=== PATIENT | male | born 1985 ===

== ENCOUNTER 2017-03-04 07:00 | Inpatient (IN) | payer OTHER ==
[~2017-03-04] VITALS: Ht 190.5 cm; Wt 86.2 kg
[2017-04-04] VITALS (14 sets, daily range): BP systolic 102–144; BP diastolic 49–84
[2017-04-04] MEDS ORDERED: Bacitracin 50000 Units Vial ONE ×2 (06:43→09:42)
[2017-04-04] MEDS ORDERED: Vancomycin 1gm inj IVPB ONE ×2 (06:43→11:16)
[2017-04-04] MEDS ORDERED: Bupivacaine w/Epi 0.25% 30ml Vial INJ ONE (06:43)
[2017-04-04] MEDS ORDERED: Bupivacaine w/Epi 0.5% 30ml Vial INJ ONE (06:43)
[2017-04-04] MEDS ORDERED: Thrombin 5000 units TOPIC ONE ×2 (06:43→09:42)
[2017-04-04] MEDS ORDERED: NORCO 10/3251 EA ORAL (06:58)
[2017-04-04] MEDS ORDERED: NS Irrig 1000ml ONE (07:00)
[2017-04-04] MEDS ORDERED: Lidocaine 1% MPF 10mg/ml 5ml ONE (07:00)
[2017-04-04] MEDS ORDERED: Sodium Chloride 10ml vial INJ ONE (07:00)
[2017-04-04] MEDS ORDERED: Zemuron 50mg/5ml Inj IV ONE (07:00)
[2017-04-04] MEDS ORDERED: Sterile Water Irrig 1000ml IRRIG ONE (07:00)
[2017-04-04] MEDS ORDERED: fentaNYL 100 mcg/2 mL IV ONE (07:00)
[2017-04-04] MEDS ORDERED: Midazolam 2mg/2ml Inj ONE (07:00)
[2017-04-04] MEDS ORDERED: Propofol 1,000mg/ 100ml btl IV ONE (07:00)
[2017-04-04] MEDS ORDERED: LR 1000ml ONE (07:00)
--- NOTE | 2017-04-04 07:29 | Pre-Procedure Note/Attestation ---
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 I attest that, if there was a reasonable possibility of needing a blood transfusion, the patient (or the patient's legal event sales representative) was given the [place] [facility] [employer] [facility] standardized written summary, pursuant to the [place] Blood Safety Act ([place] Health and Safety Code # 1645, as amended). I attest that I re-evaluated the patient just prior to the surgery and that there has been no change in the patient's H&P, except as documented below: DAMARI SHARP Apr 04, 2017 07:29
[2017-04-04] MEDS ORDERED: Norco 7.5mg/325mg tab ORAL PRN (07:30)
[2017-04-04] MEDS ORDERED: Chloraseptic Spray 20mL Bottle ORAL PRN (07:30)
[2017-04-04] MEDS ORDERED: Norco 5mg/325mg tab ORAL PRN (07:30)
[2017-04-04] MEDS ORDERED: Milk of Magnesia 30ml Ud ORAL PRN (07:30)
[2017-04-04] MEDS ORDERED: Metoclopramide 10mg/2ml Inj IVP PRN (07:30)
[2017-04-04] MEDS ORDERED: Naloxone 0.4mg/ml Inj IVP PRN (07:30)
[2017-04-04] MEDS ORDERED: HYDROmorphone 1mg/ml Carpuject SUBQ PRN (07:30)
--- NOTE | 2017-04-04 07:30 | Brief Operative Note ---
Immediate Post Operative Note Operative Note Chief Complaint: Back and leg pain, disc herniations L45 and 5S1 Pre-op Diagnosis: Intractable back pain , recurrent disc herniation L45 and L5S1 Procedure: Stage 1 Anterior Lumbar interbody fusion of Lumbar 45 and 5S1 with allograft bone Stage 2 Posterior miller laminectomy and pedicle screw fixation of L45 and 5S1 Post-op Diagnosis: same as pre-op Surgeon: ARON Bill Distributor: ABBIE Anesthesia: general Specimen: none Condition: stable Implant(s) used?: Yes - nJUVASIVE BRIGADE PEEK SYNTHES PEDICLE SCREWS DAMARI SHARP Apr 04, 2017 07:30
[2017-04-04] MEDS ORDERED: Heparin 5000 units/ml inj ONE (07:57)
[2017-04-04] MEDS ORDERED: LR 1000ml 1,000 ML IVLG SCH (08:28)
[2017-04-04] MEDS ORDERED: LORazepam Inj 2mg/ml 1ml IV PRN (08:30)
[2017-04-04] MEDS ORDERED: LR 1000ml 1,000 ML IV SCH (08:30)
[2017-04-04] MEDS ORDERED: DiphenhydrAMINE 50mg/ml Inj IVP PRN (08:30)
[2017-04-04] MEDS ORDERED: ceFAZolin 2gm/50 ML IV ONE (08:30)
--- NOTE | 2017-04-04 08:40 | Anethesia Preoperative Eval ---
Anesthesia Pre-op PMH/ROS General Date of Evaluation: Apr 04, 2017 Time of Evaluation: 07:15 Anesthesiologist: Carlos A ASA Score: ASA 1 Mallampati Score Class I : Soft palate, uvula, fauces, pillars visible Class II: Soft palate, uvula, fauces visible Class III: Soft palate, base of uvula visible Class IV: Only hard plate visible Mallampati Classification: Class I Surgeon: Jenny Diagnosis: Lumbar radiculopathy, HNP, stenosis Surgical Procedure: ALIF and PLIF L4-5, L5-S1 Family History: no anesthesia problems Allergies: Coded Allergies: CIPROFLOXACIN (Verified Allergy, Unknown, 04/01/17) Medications: see eMAR Past Medical History Cardiovascular: Denies: HTN, CAD, [place], valve dz, arrhythmia, other Pulmonary: Denies: asthma, COPD, [place], other Gastrointestinal/Genitourinary: Denies: GERD, CRI, ESRD, other Neurologic/Psychiatric: Denies: dementia, CVA, depression/anxiety, TIA, other Endocrine: Denies: DM, hypothyroidism, steroids, other HEENT: Denies: cataract (L), cataract (R), glaucoma, SLEETMUTE (L), SLEETMUTE (R), other Hematology/Immune: Denies: anemia, DVT, bleeding disorder, other Musculoskeletal/Integumentary: Denies: OA, RA, DJD, DDD, edema, other PMH Narrative: Denies significant PMH PSxH Narrative: Microdiscectomy Anesthesia Pre-op Phys. Exam Physician Exam Last Vital Signs Date Time Temp Pulse Resp B/P (MAP) Pulse Ox O2 Delivery O2 Flow Rate FiO2 04/04/17 07:04 98.2 77 18 138/84 99 Room Air Constitutional: NAD Neurologic: CN 2-12 intact Cardiovascular: RRR, no M/R/G Respiratory: CTA Gastrointestinal: S/NT/ND Airway Exam Mallampati Score: Class I MO: full ROM: full Teeth: intact Anesthesia Pre-op A/P Labs WNL Studies Pre-op Studies: EKG - NSR Risk Assessment & Plan Assessment: Healthy male for ALIF and PLIF L4-5, L5-S1 Plan: GETA, SedLine, second IV to right hand Status Change Before Surgery: No Pre-Antibiotics Drug: Ancef Given Within 1 Hr of Incision: Yes Time Given: 07:45 APDMA MEDINA M.D. Apr 04, 2017 08:40
--- NOTE | 2017-04-04 08:41 | Immediate Post-Op Evaluation ---
Immediate Post-Op Evalulation Immediate Post-Op Evalulation Procedure: LIF and PLIF L4-5, L5-S1 Date of Evaluation: Apr 04, 2017 Time of Evaluation: 13:15 IV Fluids: 3100 Estimated Blood Loss: 200 Urinary Output: 200 Blood Pressure Systolic: 110 Blood Pressure Diastolic: 63 Pulse Rate: 68 Respiratory Rate: 18 O2 Sat by Pulse Oximetry: 100 Temperature (Fahrenheit): 97.3 Pain Score (1-10): 0 Nausea: No Vomiting: No Complications No complication Patient Status: reacts, patent, extubated, none Hydration Status: adequate Drug: Ancef Given Within 1 Hr of Incision: Yes Time Given: 07:45 PADMA MEDINA M.D. Apr 04, 2017 08:41
[2017-04-04] MEDS ORDERED: Propofol 200mg/20ml IV ONE (12:04)
[2017-04-04] MEDS: Hydromorphone 0.5mg/0.5ml inj IVP PRN ×2 (13:27→14:02)
[2017-04-04] MEDS: Meperidine 25mg/0.5ml Inj (FOR RIGORS ONLY) IV PRN ×2 (13:33→14:38)
--- NOTE | 2017-04-04 15:26 | Diagnostic Imaging Report ---
Indication: PAIN low back and left lower extremity Technique: Intraoperative imaging Comparison: None Findings: Digital intraoperative initially demonstrate a surgical tool at the anterior aspect of what is presumably L5-S1 disc. Subsequent images demonstrate placement of anterior fusion hardware and disc spacers, subsequent posterior fusion hardware between L4 and S1. Impression: Intraoperative images, as described
[2017-04-04] MEDS: NS w/KCl 20mEq 1,000 ML IV SCH (15:53)
[2017-04-04] MEDS: Dexamethasone 4mg/ml vial IVP SCH (16:02)
[2017-04-04] MEDS: ceFAZolin sod 1 GM in D5W 55 ML IV SCH ×2 (16:02→23:11)
[2017-04-04] MEDS: Docusate 100mg cap ORAL SCH (18:00)
--- NOTE | 2017-04-04 20:00 | Consultation ---
DATE OF CONSULTATION: 04/04/2017 VASCULAR SURGERY CONSULTATION HISTORY OF PRESENT ILLNESS: The patient is a 31-year-old male, who was admitted to undergo anterior lumbar interbody fusions of L4-L5 and L5-S1 as determined by his spine surgeon, Dr. David Alvarado. Prior to today, the patient had received at his home my separate informed consent form which introduced me and explained my role in the approach for the anterior lumbar spine surgery. It also outlined the possible risks and complications, including but not limited to hemorrhage, need for blood transfusions, retrograde ejaculation, wound infection, bowel or ureter injury, arterial or venous injury or thrombosis, and the remote chance of etc. The patient read the form signed it and brought that back to the hospital with him today. In addition, I telephoned the patient where the procedure was discussed. Today, he was seen in the preoperative holding area with his apparent girlfriend in attendance and the contents of the form were again reviewed and any further questions were answered. He was shown the site of the incision. He had palpable bilateral dorsalis pedis pulses. He was 6 feet 3 inches tall, weighing approximately 190 pounds giving him a BMI of 24,. His hematocrit was 46 with a platelet count of 255,000. His INR was 1.02 with a PTT of 31 seconds. That consent was signed once again with a nurse witness and signature as well and then placed into the chart. He fully understood and wished to proceed. There were no contraindications and we would proceed with the proposed operation. Nithin Randolph M.D. DR: MARIZOL JOB#: [id number] CC:
--- NOTE | 2017-04-04 23:41 | Consultation ---
History of Present Illness General Date patient seen: Apr 04, 2017 Time patient seen: 17:00 Chief Complaint: intractable back pain Referring physician: Dr. Alvarado Reason for Consultation: med della Present Illness HPI 31y/o male with lumbar disc herniation who presents s/p Stage 1 Anterior Lumbar interbody fusion of Lumbar 45 and 5S1 with allograft bone and Stage 2 Posterior miller laminectomy and pedicle screw fixation of L45 and 5S1 on 04/04/17, POD#0. Postop pain appears controlled. Denies n/v, d/c, chest pain, SOB, f/c. Allergies: Coded Allergies: CIPROFLOXACIN (Verified Allergy, Unknown, 04/01/17) Medication History Scheduled PRN Hydrocodone/Acetaminophen (Hydrocodon-Acetaminophn 10-325), 1 TAB ORAL Q4H PRN for For Pain, (Reported) Patient History Healthcare decision maker holley(lupis) Resuscitation status Full Code Advanced Directive on File No Past Medical/Surgical History Past Medical/Surgical History: (1) HNP (herniated nucleus pulposus), lumbar Family History Family History: (1) No significant family history Social History Social History: (1) No significant social history Review of Systems ROS Narrative CONSTITUTIONAL: No weight loss, fever, chills, weakness or fatigue. HEENT: Eyes: No visual loss, blurred vision, double vision or yellow sclerae. Ears, Nose, Throat: No hearing loss, sneezing, congestion, runny nose or sore throat. SKIN: No rash or itching. CARDIOVASCULAR: No chest pain, chest pressure or chest discomfort. No palpitations or edema. RESPIRATORY: No shortness of breath, cough or sputum. GASTROINTESTINAL: No anorexia, nausea, vomiting or diarrhea. No abdominal pain or blood. NEUROLOGICAL: No headache, dizziness, syncope, paralysis, ataxia, numbness or tingling in the extremities. No change in bowel or bladder control. MUSCULOSKELETAL: No muscle, back pain, joint pain or stiffness. HEMATOLOGIC: No anemia, bleeding or bruising. LYMPHATICS: No enlarged nodes. No history of splenectomy. PSYCHIATRIC: No history of depression or anxiety. ENDOCRINOLOGIC: No reports of sweating, cold or heat intolerance. No polyuria or polydipsia. ALLERGIES: No history of asthma, hives, eczema or rhinitis. Physical Exam Physical Exam Narrative General: alert, cooperative, no distress, appears stated age Head: normocephalic, without obvious abnormality, atraumatic Eyes: conjunctivae/corneas clear. PERRL, EOM's intact Throat: lips, mucosa, and tongue normal. MMM Neck: supple, symmetrical, trachea midline, and no JVD Lungs: clear to auscultation bilaterally Heart: regular rate and rhythm, S1, S2 normal, no murmur, click, rub or gallop Abdomen: soft, non-tender, non-distended, bowel sounds normal; no masses or organomegaly Extremities: extremities normal, atraumatic, no cyanosis or edema Pulses: 2+ and symmetric Skin: skin color, texture, turgor normal; no rashes or lesions Neurologic: grossly normal, no focal deficits Dressing c/d/i Last 24 Hour Vital Signs Date Time Temp Pulse Resp B/P (MAP) Pulse Ox O2 Delivery O2 Flow Rate FiO2 04/04/17 20:00 97.7 76 16 126/77 100 Nasal Cannula 2.0 04/04/17 15:25 98.2 80 15 134/74 100 Nasal Cannula 3.0 04/04/17 15:08 98.0 04/04/17 14:50 98.0 79 15 137/82 100 Nasal Cannula 3.0 04/04/17 14:38 79 15 144/78 100 Nasal Cannula 3.0 04/04/17 14:32 98.0 04/04/17 14:30 75 15 134/84 100 Nasal Cannula 3.0 04/04/17 14:15 72 13 129/80 100 Nasal Cannula 3.0 04/04/17 14:00 71 13 131/76 100 Nasal Cannula 3.0 04/04/17 13:50 69 12 135/76 100 Nasal Cannula 3.0 04/04/17 13:35 72 13 132/74 100 Nasal Cannula 3.0 04/04/17 13:20 68 18 102/60 100 Nasal Cannula 3.0 04/04/17 13:10 70 20 113/49 100 Simple Mask 6.0 04/04/17 13:05 76 18 117/67 100 Simple Mask 6.0 04/04/17 13:04 68 18 100 04/04/17 13:00 97.3 69 14 113/65 100 Simple Mask 6.0 04/04/17 07:04 98.2 77 18 138/84 99 Room Air Intake and Output 04/04/17 04/05/17 19:00 07:00 Intake Total 4355 ml 200 ml Output Total 500 ml 1450 ml Balance 3855 ml -1250 ml Intake Oral 200 ml IV Total 4355 ml Output Urine Total 300 ml 1450 ml Estimated Blood Loss 200 ml Height (Feet): 6 Height (Inches): 3.00 Weight (Pounds): 190 Medications Current Medications Medications (Trade) Dose Ordered Sig/Ajit Route PRN Reason Start Time Stop Time Status Last Admin Dose Admin Acetaminophen (Tylenol) 650 mg Q4H PRN ORAL headache or temp>101 04/04/17 07:30 05/04/17 07:29 Acetaminophen/ Hydrocodone Bitart ([place] 5/325) 1 tab Q3H PRN ORAL pain score 1-3 04/04/17 07:30 04/11/17 07:29 Acetaminophen/ Hydrocodone Bitart ([place] 7.5/325) 1 ea Q3H PRN ORAL pain score 4-6 04/04/17 07:30 04/11/17 07:29 Acetaminophen/ Hydrocodone Bitart ([place] 7.5/325) 2 ea Q3H PRN ORAL pain scale 7-10 04/04/17 07:30 04/11/17 07:29 Carisoprodol (Soma) 350 mg TIDPRN PRN ORAL MUSCLE SPASM 04/04/17 07:30 05/04/17 07:29 Cefazolin Sodium 1 gm/Dextrose 55 ml @ 110 mls/hr EVERY 8 HOURS IV 04/04/17 15:30 04/05/17 06:29 04/04/17 23:11 Cetylpyridinium Chloride (Cepacol) 1 lozenge Q2H PRN LINDEN SORE THROAT 04/04/17 07:30 05/04/17 07:29 Dexamethasone Sodium Phosphate (Decadron 4mg/ml vial) 4 mg Q6HR IVP 04/04/17 16:00 04/05/17 12:01 04/04/17 16:02 Docusate Sodium (Colace) 100 mg TWICE A DAY ORAL 04/04/17 18:00 05/04/17 17:59 Hydromorphone HCl (Dilaudid) 1 mg Q2H PRN IVP Breakthrough Pain 04/04/17 07:30 04/11/17 07:29 Hydromorphone HCl (Dilaudid) 1 mg Q4H PRN SUBQ Mild Pain (Pain Scale 1-3) 04/04/17 07:30 04/11/17 07:29 Hydromorphone HCl (Dilaudid) 2 mg Q3H PRN SUBQ Severe Pain (Pain Scale 7-10) 04/04/17 15:00 04/11/17 14:59 04/04/17 23:12 Hydromorphone HCl (Dilaudid) 2 mg Q4H PRN SUBQ Moderate Pain (Pain Scale 4-6) 04/04/17 07:30 04/11/17 07:29 Magnesium Hydroxide (Mom) 30 ml QIDPRN PRN ORAL Constipation 04/04/17 07:30 05/04/17 07:29 Metoclopramide HCl (Reglan) 10 mg Q6H PRN IVP UNRELIEVED N/V 04/04/17 07:30 05/04/17 07:29 Naloxone HCl (Narcan) 0.1 mg PRN PRN IVP RR<12/min, pt unarousable 04/04/17 07:30 05/04/17 07:29 Ondansetron HCl (Zofran) 4 mg Q6H PRN IVP N/V 04/04/17 07:30 05/04/17 07:29 04/04/17 18:59 Phenol/Menthol (Chloraseptic) 1 spray Q3H PRN ORAL For pt comfort for throat 04/04/17 07:30 05/04/17 07:29 Prochlorperazine (Compazine) 10 mg Q6H PRN IVP IRRETRACTABLE N/V 04/04/17 07:30 05/04/17 07:29 Sodium Chloride 1,000 ml @ 100 mls/hr Q10H IV 04/04/17 15:30 05/04/17 15:29 04/04/17 15:53 Temazepam (Restoril) 15 mg HSPRN PRN ORAL Insomnia 04/04/17 07:30 04/11/17 07:29 Assessment/Plan Problem List: (1) HNP (herniated nucleus pulposus), lumbar ICD Codes: M51.26 - Other intervertebral disc displacement, lumbar region SNOMED: 176326764 Status: stable Assessment/Plan s/p Stage 1 Anterior Lumbar interbody fusion of Lumbar 45 and 5S1 with allograft bone and Stage 2 Posterior miller laminectomy and pedicle screw fixation of L45 and 5S1 on 04/04/17 Post operative recommendations include: - encourage mobilization/ambulation - encourage incentive spirometry to optimize pulmonary hygiene - DVT/GI prophylaxis as appropriate - ctm CBC and hemodynamics - ctm electrolytes, adjust/replete prn - PT/OT - pain control, supportive care, bowel regimen - DC planning FULL CODE D/w pt, RN regarding mgmt and dispo Rebecac Baldwin M.D. Apr 04, 2017 23:41
[2017-04-05] VITALS: BP 124/75
--- NOTE | 2017-04-05 | Operative Note - Dictated ---
DATE OF OPERATION: 04/04/2017 OPERATIONS: 1. Muscle sparing anterior abdominal retroperitoneal approach for anterior lumbar interbody fusions (two levels). 2. Mobilization of the left iliac artery and aorta. 3. Mobilization of the left iliac vein and ligation of ilial lumbar vein. 4. Plastic closure repair of abdominal wound. CO-SURGEONS: 1. Nithin Randolph M.D. 2. David Alvarado M.D. ANESTHESIA: General. PREOPERATIVE DIAGNOSIS: Lumbar pain with radiculopathy, L4-L5 and L5-S1. POSTOPERATIVE DIAGNOSIS: Lumbar pain with radiculopathy, L4-L5 and L5-S1. DESCRIPTION OF PROCEDURE: Prior to surgery, the patient had received at his home my separate informed consent form, which introduced me and explained my role in the approach for the anterior lumbar spine surgery. It also outlined the possible risks and complications including, but not limited to hemorrhage, need for blood transfusions, retrograde ejaculation, wound infection, bowel or ureter injury, arterial or venous injury or thrombosis, and the remote chance of , etc. The patient read the form, signed it, and brought it back to the hospital with him today. In addition, I telephoned the patient, where the procedure was discussed. Today, he was seen in the preoperative holding area where the contents of the form were again reviewed and any further questions were answered. He was shown the site of the incision. He had palpable bilateral dorsalis pedis pulses. That consent was signed once again with a nurse witness and signature as well and then placed into the chart. He fully understood and wished to proceed. A preoperative vascular surgery consultation report was dictated. The patient was taken into the operating room and placed in supine position. Using an endotracheal tube, he was placed under general anesthesia without difficulty. His abdomen was prepped and draped in the usual sterile manner. An appropriate time-out was obtained. An oblique incision was made in the left lower quadrant from the low midline and carried down through the subcutaneous tissues down to the rectus fascia. Hemostasis was achieved using electrocautery. The rectus fascia was incised with extension into the fibers of the external oblique aponeurosis. Elevation of the rectus fascia away from the anterior surface of the muscle was then carried out for a distance of approximately 4 cm cephalad. This would allow for retraction of the rectus muscle laterally in order to obtain direct anterior-posterior approach to the anterior surface of the spine. The inferior epigastric vessels were identified and preserved. The posterior fascia was then incised and carefully from the peritoneum. Laterally, the retroperitoneal space was entered down to the left psoas muscle. The left ureter was identified and protected as it was mobilized with the peritoneum more medially until the left iliac artery was identified. Deep self-retaining retractors such as the [place] and [place] were utilized to hold the abdominal wall and peritoneal contents in place while further dissection was carried out. The left iliac artery was now mobilized for its entire length throughout the junction with the aorta. Deeper dissection revealed the common iliac vein, which was mobilized down to its iliolumbar branch. This branch was ligated using 0 silk with hemoclips placed and transected. Any other venous tributaries in the area were controlled with hemoclips and transected. This allowed for mobilization of the iliac vessels both anteriorly and to the right to allow proper visualization of the anterior surface of the spine. Segmental vessels lying along the anterior surface of the spine were taken between hemoclips and transected. Attention was directed below the bifurcation of the iliac vessels where several medial branches of the iliac vein were taken between hemoclips and transected. The middle sacral artery was taken between hemoclips and transected. Careful blunt dissection was carried out to preserve the sympathetic chains laterally as well as the parasympathetic plexus, which lies anteriorly along the surface of the fifth lumbar vertebra. Further careful blunt dissection was utilized exposing anterior surface of the multiple vertebral bodies intervening disc spaces. Several malleable retractor blades were now placed in all quadrants with the rectus muscle now retracted laterally, which allowed exposure and direct anterior-posterior approach to the anterior surface of the spine. A needle was inserted into the appropriate disc space and an x-ray was taken to verify the exposure. The spine surgeon then proceeded to perform diskectomy at the multiple levels and fusions, which will be dictated in a separate report by the spine surgeon, Dr. Alvarado. Antibiotic irrigation had been carried out. The malleable retractors were removed. Vancomycin powder was left in the retroperitoneum. The iliac vessels were then checked to see that there was no thrombosis in the vein with good flow in the artery without any spasm or thrombosis. A further check for hemostasis was made and the integrity of the ureter was verified. The peritoneum was allowed to return to its anatomical location and then the posterior sheath was approximated using continuous running suture of 2-0 Vicryl. The anterior rectus fascia was approximated using #1 Vicryl. The subcutaneous tissues were irrigated using antibiotic solution and hemostasis noted to be achieved. Plastic closure repair of the abdominal wound was continued using 2-0 Vicryl, followed by skin approximation using continuous subcuticular suture of 4-0 Monocryl. Steri-Strips were applied. Dry sterile gauze OpSite dressings were applied. The sponge, pad, needle, and instrument counts reported as correct. Estimated blood loss was 75 mL. There were no complications during this part of the procedure. At completion of this part of the procedure, the patient had maintenance of strong palpable bilateral dorsalis pedis pulses and the pulse oximeter registered 100% on the left foot. The patient would remain in the operating room, undergo posterior instrumentation by the spine surgeon. Nithin Randolph M.D. DR: Alberto JOB#: [id number] CC:
[2017-04-05] MEDS: NS w/KCl 20mEq 1,000 ML IV SCH ×2 (00:04→11:30)
[2017-04-05] MEDS: Dexamethasone 4mg/ml vial IVP SCH ×3 (00:04→13:02)
[2017-04-05 04:00] VITALS: BP 136/78
[2017-04-05] MEDS: ceFAZolin sod 1 GM in D5W 55 ML IV SCH (06:08)
[2017-04-05 08:00] VITALS: BP 125/76
[2017-04-05] MEDS: Norco 7.5mg/325mg tab ORAL PRN ×4 (09:43→21:50)
[2017-04-05] MEDS: Docusate 100mg cap ORAL SCH ×2 (10:10→17:37)
--- NOTE | 2017-04-05 11:51 | 48 Hour Post Anesthesia Eval ---
Post Anesthesia Evaluation Procedure: LIF and PLIF L4-5, L5-S1 Date of Evaluation: Apr 05, 2017 Time of Evaluation: 09:35 Blood Pressure Systolic: 125 0: 76 Pulse Rate: 78 Respiratory Rate: 18 Temperature (Fahrenheit): 98.4 O2 Sat by Pulse Oximetry: 96 Airway: patent Nausea: No Vomiting: No Pain Intensity: 3 Hydration Status: adequate Cardiopulmonary Status: Stable Mental Status/LOC: patient returned to baseline Follow-up Care/Observations: As per surgery Post-Anesthesia Complications: No anesthetic complication Follow-up care needed: N/A PADMA MEDINA M.D. Apr 05, 2017 11:51
[2017-04-05 12:01] VITALS: BP 117/74
[2017-04-05 16:18] VITALS: BP 138/77
[2017-04-05 20:00] VITALS: BP 118/79
--- NOTE | 2017-04-05 20:24 | General Progress Note ---
Assessment/Plan Problem List: (1) HNP (herniated nucleus pulposus), lumbar ICD Codes: M51.26 - Other intervertebral disc displacement, lumbar region SNOMED: 546273644 Status: stable Assessment/Plan s/p Stage 1 Anterior Lumbar interbody fusion of Lumbar 45 and 5S1 with allograft bone and Stage 2 Posterior miller laminectomy and pedicle screw fixation of L45 and 5S1 on 04/04/17 Post operative recommendations include: - encourage mobilization/ambulation - encourage incentive spirometry to optimize pulmonary hygiene - DVT/GI prophylaxis as appropriate - ctm CBC and hemodynamics - ctm electrolytes, adjust/replete prn - PT/OT - pain control, supportive care, bowel regimen - DC planning FULL CODE D/w pt, RN regarding mgmt and dispo Subjective Date patient seen: Apr 05, 2017 Time patient seen: 15:00 ROS Limited/Unobtainable: No Constitutional: Reports: no symptoms HEENT: Reports: no symptoms Cardiovascular: Reports: no symptoms Respiratory: Reports: no symptoms Gastrointestinal/Abdominal: Reports: abdomen distended Genitourinary: Reports: no symptoms Neurologic/Psychiatric: Reports: no symptoms Endocrine: Reports: no symptoms Hematologic/Lymphatic: Reports: no symptoms Allergies: Coded Allergies: CIPROFLOXACIN (Verified Allergy, Unknown, 04/01/17) Subjective No acute o/n events POD1 Pt doing well. Pain controlled. C/o abd distention, no gas yet. Denies f/c, n/v , d/c, chest pain, SOB Objective Last 24 Hour Vital Signs Date Time Temp Pulse Resp B/P (MAP) Pulse Ox O2 Delivery O2 Flow Rate FiO2 04/05/17 16:18 99.1 70 20 138/77 100 Room Air 04/05/17 12:01 98.5 71 20 117/74 99 Room Air 04/05/17 11:51 78 18 96 04/05/17 08:00 98.4 78 18 125/76 96 Nasal Cannula 2.0 04/05/17 04:00 98.6 77 16 136/78 99 Nasal Cannula 2.0 04/05/17 00:00 98.6 80 16 124/75 100 Room Air Intake and Output 04/05/17 04/06/17 19:00 07:00 Intake Total 580 ml Balance 580 ml Intake Oral 580 ml # Voids 1 Height (Feet): 6 Height (Inches): 3.00 Weight (Pounds): 190 Objective General: alert, cooperative, no distress, appears stated age Head: normocephalic, without obvious abnormality, atraumatic Eyes: conjunctivae/corneas clear. PERRL, EOM's intact Throat: lips, mucosa, and tongue normal. MMM Neck: supple, symmetrical, trachea midline, and no JVD Lungs: clear to auscultation bilaterally Heart: regular rate and rhythm, S1, S2 normal, no murmur, click, rub or gallop Abdomen: soft, non-tender, non-distended, bowel sounds normal; no masses or organomegaly Extremities: extremities normal, atraumatic, no cyanosis or edema Pulses: 2+ and symmetric Skin: skin color, texture, turgor normal; no rashes or lesions Neurologic: grossly normal, no focal deficits Dressing c/d/i Rebecca Baldwin M.D. Apr 05, 2017 20:24
[2017-04-06] MEDS: HYDROmorphone 1mg/ml Carpuject IVP PRN ×2 (03:53→09:49)
[2017-04-06 04:00] VITALS: BP 124/91
[2017-04-06 08:00] VITALS: BP 114/61
[2017-04-06] MEDS: Docusate 100mg cap ORAL SCH ×2 (09:48→17:30)
[2017-04-06 12:00] VITALS: BP 112/72
[2017-04-06] MEDS: Norco 7.5mg/325mg tab ORAL PRN ×2 (13:14→16:56)
[2017-04-06 16:00] VITALS: BP 108/71
[2017-04-06] MEDS ORDERED: PERCOCET 10-321 EACH ORAL (17:12)
--- NOTE | 2017-04-07 04:00 | Operative Note - Dictated ---
DATE OF OPERATION: 04/04/2017 Stage 1 of 2. SURGEON: David Alvarado M.D., Orthopaedic Spine Surgeon INTERNATIONAL PROJECT MANAGER SURGEON: Nithin Randolph M.D. ANESTHESIA: General endotracheal anesthesia. PREOPERATIVE DIAGNOSES: 1. Intractable back pain. 2. Intractable leg pain. 3. Worsening radiculopathy. 4. Weakness. 5. Herniated nucleus pulposus, L4-5 and L5-S1 herniation. 6. Neural foraminal stenosis, L4-5 and L5-S1 herniation. POSTOPERATIVE DIAGNOSES: 1. Intractable back pain. 2. Intractable leg pain. 3. Worsening radiculopathy. 4. Weakness. 5. Herniated nucleus pulposus, L4-5 and L5-S1 herniation. 6. Neural foraminal stenosis, L4-5 and L5-S1 herniation. PROCEDURES PERFORMED: 1. Radical anterior lumbar intervertebral L4-5 and L5-S1 discectomy. 2. Anterior lumbar interbody fusion using a NuVasive Brigade PEEK cage size #14 mm with 10 mL of Osteocel and bone morphogenetic protein with allograft Meigs bone. 3. Anterior lumbar plating and fixation at L4-5 and L5-S1 using Synthes pedicle screws 6 mm x 45 mm x3 25 mm length. 4. Anterior retroperitoneal exposure. 5. Supervision and interpretation of intraoperative fluoroscopy. 6. Supervision and interpretation of somatosensory-evoked potential and free running EMG monitoring. ESTIMATED BLOOD LOSS: 150 mL COMPLICATIONS: None. Indications For The Procedure: The patient is a 31-year-old male who presents for intractable back pain and radiculopathy which is well documented in our clinical chart and records. We had a long discussion with Maida regarding definitive surgical treatment options. We had a long discussion with the patient regarding the risks, alternatives, and benefits of procedure. Our description of the risks included a discussion in person as well as a signed consent which detailed all pertinent risks and the procedure itself. Briefly, our discussion included but was not limited to infection, bleeding, pseudarthrosis, spinal cord injury, neurovascular injury, dural tear, CSF leak, neuropathy, paralysis, permanent weakness/drop foot, paresthesias, blindness, palsy and weakness. The patient understood there may be a need for revision surgery or additional procedures. Approach-related complications including dysphonia, dysphagia, blindness, permanent vocal cord and neural injury, hematoma, swallowing and breathing difficulty; medical complications including liver, kidney, shock, and cardiopulmonary failure; anesthesia complications including , swelling, damage to the musculature, larynx , esophagus, trachea, blood vessels and muscles and lungs during this surgical procedure. Injury to deeper structures may be temporary or permanent. The patient understood these and elected to proceed. A written and verbal consent was given. We discussed the pros and cons of all the alternatives. We discussed the uncertainties associated with the decision. Afterwards I assessed the patients understanding and explored their preferences. All questions were answered and no guarantees were given. Medical clearance was obtained prior to surgery. OPERATIVE FINDINGS: A broad-based disc herniation at L4-5 and L5-S1 was encountered, which encroached on the thecal sac and neural foraminal elements therein. This L4-5 and L5-S1 disk was acute in nature and not calcified. It was mobile and free floating and resected easily. There was also neural foraminal stenosis at L4-5 and L5-S1. DESCRIPTION OF PROCEDURE: Under the benefit of general endotracheal anesthesia and with the assistance of the entire operative team, the patient was moved from the [facility] onto the operative table in the supine position on a radiolucent frame. The head was secured and positioned appropriately. Bilateral arms were secured with Gel Pads and foam and all bony prominences were padded. The bilateral lower extremity SCD and SABA hose were placed for DVT prophylaxis. A surgical timeout was called, which corroborated our planned procedure. Preoperative antibiotics were administered within 30 minutes of the incision for prophylaxis. Using lateral radiography, the operative levels were delineated. An incision was marked based on our interpretation of lateral radiography and afterwards the body was prepped and draped in the usual sterile manner. The family was notified that we were ready to commence surgery and were called in the waiting room hourly for updates. An incision was based on our lateral fluoroscopic image to center the incision at the L4-5 and L5-S1 interspace. The wound was prepped and draped in the usual sterile fashion. Using a scalpel, a standard retroperitoneal exposure was performed by our vascular surgeon, and this is delineated in a separate operative note. After appropriate exposure at the L5-S1 disc space, we next turned our attention towards our radical discectomy. This was performed in standard fashion first beginning with a gentle mobilization of all superficial soft tissue overlying the disc space with Kittners. After this was performed we marked our midline and confirmed our disc space on AP and lateral fluoroscopy. Next, using a 10 blade long-handled scalpel, the disc was resected from the endplates in a box discectomy technique. Next using Beth elevators the disc was mobilized off each endplate. After this, using a large Leksell rongeurs, the entire disc was removed from the intervertebral space. All residual disc and cartilaginous endplates were resected using a combination of small and medium curettage, pituitaries, size 4 and size 6 Kerrison rongeurs. Next, the endplates were distracted in a parallel fashion using the [employer] or medical and a 7.5 Thandle. At this point the PLL was resected using a small curette and a Kerrison 4 rongeur. Next the endplates were resected down to bleeding subchondral bone using a ring and box curette. For any residual bleeding which we encountered at this point, this was maintained and controlled with a combination of FloSeal, Gelfoam and bipolar cautery. Afterwards, Tisseel was used to seal the discectomy site dorsally. Next I then trialed the interspace for height, width and depth. This was confirmed on fluoroscopy and, once satisfied with our fit, we loaded and inserted a NuVasive Brigade PEEK cage size #14 mm with bone morphogenetic protein and with allograft Meigs bone under AP and lateral fluoroscopy. AP and lateral fluoroscopy confirmed excellent placement at the L4-5 and L5-S1 interspace. Afterwards, we turned our attention towards plating from the L5-S1 NuVasive Brigade. This anterior lumbar plating and fixation at L5-S1 using Synthes pedicle screws 6 mm x 45 mm x3 25 mm length. Final radiographs confirmed appropriate placement of all hardware, screws and our PEEK cages along with a sabianist of the lumbar lordosis. Afterwards, Tisseel was used to seal the discectomy site ventrally. FloSeal and Zosyn antibiotics were placed directly on the anterior fusion site. Second level: L4-5. After appropriate exposure at the L4-5 disc space we next turned our attention towards our radical discectomy. This was performed in standard fashion first beginning with a gentle mobilization of all superficial soft tissue overlying the disc space with Kittners. After this was performed, we marked our midline and confirmed our disc space on AP and lateral fluoroscopy. Next using a 10 blade long-handled scalpel, the disc was resected from the endplates in a box discectomy technique. Next, using Beth elevators, the disc was mobilized off each endplate. After this, using a large Leksell rongeurs, the entire disc was removed from the intervertebral space. All residual disc and cartilagenous endplates were resected using a combination of small and medium curettage, pituitaries, size 4 and size 6 Kerrison rongeurs. Next the endplates were distracted in a parallel fashion using the [employer] or medical and a 7.5 Thandle. At this point the PLL was resected using a small curette and a Kerrison 4 rongeur. Next the endplates were resected down to bleeding subchondral bone using a ring and box curette. For any residual bleeding which we encountered at this point, this was maintained and controlled with combination of FloSeal, Gelfoam and bipolar cautery. Afterwards, Tisseel was used to seal the discectomy site dorsally. Next, I then trialed the interspace for height , width and depth. This was confirmed on fluoroscopy and once satisfied with our fit, we loaded and inserted a a NuVasive Brigade PEEK cage size #14 mm with bone morphogenetic protein and with allograft Meigs bone under AP and lateral fluoroscopy. AP and lateral fluoroscopy confirmed excellent placement at the L4-5 interspace. Afterwards, we turned our attention towards plating from the L4-5, NuVasive Brigade. This anterior lumbar plating and fixation at L4-5 using Synthes pedicle screws 6 mm x 45 mm x3 25 mm length. Final radiographs confirmed appropriate placement of all hardware, screws and our PEEK cages along with a sabianist of the lumbar lordosis. Afterwards, Tisseel was used to seal the discectomy site ventrally. FloSeal and Zosyn antibiotics were placed directly on the anterior fusion site. The wounds were copiously irrigated with antibiotic impregnated saline. Afterwards, FloSeal was placed to address residual bleeding. Powdered antibiotics were directly poured into the wound to provide for direct antibiosis. Next, I turned my attention to closure. Fascial closure was performed with 1-0 Vicryl suture. Subcutaneous tissues were reapproximated with 2-0 Vicryl. The superficial subcutaneous skin was closed with a running Monocryl and Dermabond. Dressings consisted of Tegaderm and 4 x 4 gauze. The patient tolerated the procedure well and after discussion with our vascular surgeon and our anesthesiologist, we made the determination to proceed with stage 2 of 2 our posterior based approach. The details of stage 1 of the surgery were related to the patients family/representatives upon the conclusion of the procedure in the family waiting room. Stage 2 of 2. SURGEON: David Alvarado M.D., Orthopaedic Spine Surgeon INTERNATIONAL PROJECT MANAGER SURGEON: Nithin Randolph M.D. ANESTHESIA: General endotracheal anesthesia. PREOPERATIVE DIAGNOSES: 1. Intractable back pain. 2. Intractable leg pain. 3. Worsening radiculopathy. 4. Weakness. 5. Herniated nucleus pulposus, L4-5 and L5-S1 herniation. 6. Neural foraminal stenosis, L4-5 and L5-S1. POSTOPERATIVE DIAGNOSES: 1. Intractable back pain. 2. Intractable leg pain. 3. Worsening radiculopathy. 4. Weakness. 5. Herniated nucleus pulposus, L4-5 and L5-S1 herniation. 6. Neural foraminal stenosis, L4-5 and L5-S1. PROCEDURES PERFORMED: 1. Left-sided Garay laminectomy/Wiley-Hinds osteotomy, and complete facetectomy at L4-5 and L5-S1. 2. L4-5 and L5-S1 posterolateral fusion using allograft bone, local autograft, and residual bone morphogenetic protein. 3. Percutaneous pedicle screw fixation at L4-5 and L5-S1 using Synthes pedicle screws 6 mm x 45 mm length of 6.5 mm diameter. 4. Confirmation of pedicle screws placement using neural monitoring. 5. Use of intraoperative microscope. 6. Supervision and interpretation of intraoperative fluoroscopy. 7. Supervision and interpretation of somatosensory-evoked potential and free running EMG monitoring. ESTIMATED BLOOD LOSS: 150 mL. COMPLICATIONS: None. INDICATIONS FOR THE PROCEDURE: The patient is a 31-year-old male, who presents for Stage 2 in regards to their intractable back pain and radiculopathy. This operative note details the second stage of our surgery. Prior to surgery we had a long discussion with Maida regarding definitive surgical treatment options. We had a long discussion with the patient regarding the risks, alternatives, and benefits of procedure. Our description of the risks included a discussion in person as well as a signed consent, which detailed all pertinent risks and the procedure itself. Briefly, our discussion included but was not limited to infection, bleeding, pseudarthrosis, spinal cord injury, neurovascular injury, dural tear, CSF leak, neuropathy, paralysis, permanent weakness/drop foot, paresthesias, blindness, palsy and weakness. The patient understood there may be a need for revision surgery or additional procedures. Approach related complications including dysphonia, dysphagia, blindness, permanent vocal cord and neural injury, hematoma, swallowing and breathing difficulty; medical complications including liver, kidney, shock, and cardiopulmonary failure; anesthesia complications including , swelling, damage to the musculature, larynx, esophagus, trachea, blood vessels and muscles and lungs during this surgical procedure. Injury to deeper structures may be temporary or permanent. The patient understood these and elected to proceed. A written and verbal consent was given. We discussed the pros and cons of all the alternatives. We discussed the uncertainties associated with the decision. Afterwards I assessed the patients understanding and explored their preferences. All questions were answered and no guarantees were given. This now delineates the second stage of the procedure. Operative Findings: Broad-based disc herniations encountered at L4-5 and L5-S1. The disc itself was desiccated, dehydrated. There was a tear/rent in the posterior longitudinal ligament encountered on the left side at L5 and throughout the paramedian to left side at L5-S1. Through these tears, extruded disc material was seen encroaching on the neural elements, which were carefully resected from the neural elements and thecal sac posteriorly. Description Of Procedure: Under the benefit of general endotracheal anesthesia and with the assistance of the entire operative team, the patient was moved from the radiolucent operative table in the prone position onto a Hood frame. The head was secured and positioned appropriately. Bilateral arms were secured with Gel Pads and foam and all bony prominences were padded. The bilateral lower extremity SCD and SABA hose we replaced for DVT prophylaxis. A surgical timeout was called which corroborated our planned procedure. Preoperative antibiotics were administered within 30 minutes of the incision for prophylaxis. Using lateral radiography, the operative levels were delineated. An incision was marked based on our interpretation of anterior posterior and lateral radiography and afterwards the body was prepped and draped in the usual sterile manner. The family was notified that we were ready to commence surgery and were called in the waiting room hourly for updates. An incision was based on our anterior posterior and lateral fluoroscopic image to center the incision at the L?? (Q) interspace. The wound was prepped and draped in the usual sterile fashion. Using a scalpel, a midline incision was made and the subcutaneous tissue was mobilized so that within the fascia two Leo based incisions were made, one incision on the left side focusing on his pedicle at L4-5 through a percutaneous stab wound approach. All pedicles were cannulated in the exact same fashion for each level. This was performed in the following manner. The second incision was made slightly off midline and geared towards his L4-5 interspace approached. Using Jamshidi needles under direct AP and lateral fluoroscopic visualization I approached the L4-5 pedicles with Jamshidi needles making sure to leave clearance along the medial pedicle boundary/wall, and next we advanced our bilateral pedicle screw entry points under AP and lateral fluoroscopy at both our pedicles bilaterally. Next, percutaneous screws were loaded on the hand side and on the contralateral side, . Screws were inserted in percutaneous fashion and afterwards these screws were stimulated. Next, a dana was lordosed and placed percutaneously through the incision. Next, we turned our attention to our Wiley-Hinds type osteotomy, facetectomy and decompression. This was performed at each level in the exact same fashion. Based on AP and lateral fluoroscopy, we centered this incision over the facet joints at L?? of the contralateral side. This was taken down through the skin and subcutaneous tissues until the overlying pars facet joints of L4-5 and L5-S1 were visualized under microscopic visualization. There was severe pressure on this neural foramina as palpated with the [place] dental and a Guerrero ball probe. The pars was then visualized on the contralateral side and this was carefully resected along with the lamina and superior articular process using a Midas Zeferino AM8 drill bit. This was completely resected using a Wiley-Hinds type osteotomy and medial laminar removal and facetectomy. There was a significant amount of bleeding which we encountered at this point and this was maintained and controlled with a combination of FloSeal, Gelfoam and bipolar cautery. After complete resection of the facet joints, we noticed the lateral thecal sac margin and the neural elements . Next, I turned my attention to the stimulation of pedicle screws. All pedicle screws were stimulated with somatosensory evoked potentials ranging over 20 milliampere with no response. Afterwards percutaneous rods from the Synthes pedicle screw system were inserted and placed percutaneously and locking caps were placed. Final radiographs confirmed appropriate placement of all hardware, screws and our PEEK cages along with a sabianist of the lumbar lordosis. The wounds were copiously irrigated with antibiotic impregnated saline. Afterwards, FloSeal was placed to address residual bleeding. Powdered antibiotics were directly poured into the wound to provide for direct antibiosis. Next I turned my attention to closure. Fascial closure was performed with 1-0 Vicryl suture. Subcutaneous tissues were reapproximated with 2-0 Vicryl. The superficial subcutaneous skin was closed with a running Monocryl and Dermabond. Dressings consisted of Tegaderm and 4 x 4 gauze. The patient tolerated the procedure well and will now be admitted to the spine floor for further observation. The details of the entire surgery were related to the patients family/representatives upon the conclusion of the procedure in the family waiting room. David Alvarado M.D. DR: ÁNGEL JOB#: [id number] CC:
--- NOTE | 2017-04-07 05:30 | Discharge Summary ---
DATE OF ADMISSION: 04/04/2017 DATE OF DISCHARGE: 04/06/2017 Procedure Performed During Admission: Anterior and posterior fusion of L4-5 and L5-S1. REASON FOR ADMISSION: Herniated nucleus pulposus, L4-5 and L5-S1. HOSPITAL COURSE/TREATMENT RENDERED: DISCHARGE PHYSICAL EXAMINATION: 1. Patient was ambulating with and without the assistance of physical therapy 2. Prior to discharge home incision was clean and dry with minimal swelling 3. Follows commands 4. Alert and oriented 5. Funes discontinued, voiding 6. Incentive spirometer at bedside 7. IVF hep locked Motor: Demonstrates expected postoperative bulk and tone. Moves biceps, triceps, and deltoid musculature on command. Moves hip flexors, quadriceps, tibialis anterior, EHL, gastrocsoleus musculature on command as well. TREATMENT RENDERED: 1. Daily nursing care 2. Physical Therapy 3. Occupational Therapy 4. Intravenous medications 5. Oral medications 6. Daily postoperative examinations by Spine surgery team Condition of Patient on Discharge: The condition on discharge is stable for discharge to home Discharge Instructions: Our specific instructions relating to physical activity, medications diet and follow-up care are detailed in our standard operative folder and were given to this patient prior to surgery. We will however summarize these briefly as stated below. Regarding physical activity we would like the patient to limit their flexion, extension and rotation. We also require a limitation on their bending lifting and twisting. All medication has been called in prior to surgery to their pharmacy of choice. They can resume their regular diet once tolerated. We would like them to shower and limit soaking the wound in a tub/Jacuzzi/the ocean for a period of one month or until the incision is completely healed. We will have them follow up in our office in three weeks time for their regularly scheduled appointment. They understand to call our office tomorrow to schedule the time for their three week followup appointment. The patient will notify us should they experience any increase in the severity of pain, redness/swelling/ or drainage from their incision. David Alvarado M.D. DR: Lalit JOB#: [id number] CC:
--- NOTE | 2017-04-07 14:32 | General Progress Note ---
Assessment/Plan Problem List: (1) HNP (herniated nucleus pulposus), lumbar ICD Codes: M51.26 - Other intervertebral disc displacement, lumbar region SNOMED: [id number] Status: stable Assessment/Plan s/p Stage 1 Anterior Lumbar interbody fusion of Lumbar 45 and 5S1 with allograft bone and Stage 2 Posterior miller laminectomy and pedicle screw fixation of L45 and 5S1 on 04/04/17 Post operative recommendations include: - encourage mobilization/ambulation - encourage incentive spirometry to optimize pulmonary hygiene - DVT/GI prophylaxis as appropriate - ctm CBC and hemodynamics - ctm electrolytes, adjust/replete prn - PT/OT - pain control, supportive care, bowel regimen - DC planning FULL CODE D/w pt, RN regarding mgmt and dispo Subjective Date patient seen: Apr 06, 2017 Time patient seen: 12:00 ROS Limited/Unobtainable: No Constitutional: Reports: no symptoms HEENT: Reports: no symptoms Cardiovascular: Reports: no symptoms Respiratory: Reports: no symptoms Gastrointestinal/Abdominal: Reports: abdomen distended Genitourinary: Reports: no symptoms Neurologic/Psychiatric: Reports: no symptoms Endocrine: Reports: no symptoms Allergies: Coded Allergies: CIPROFLOXACIN (Verified Allergy, Unknown, 04/01/17) All Systems: reviewed and negative except above Subjective No acute o/n events POD2 Pt doing well. Pain controlled. C/o abd distention, no gas yet. Denies f/c, n/v , d/c, chest pain, SOB Objective Last 24 Hour Vital Signs Date Time Temp Pulse Resp B/P (MAP) Pulse Ox O2 Delivery O2 Flow Rate FiO2 04/06/17 16:00 98.0 69 19 108/71 98 Room Air Height (Feet): 6 Height (Inches): 3.00 Weight (Pounds): 190 Objective General: alert, cooperative, no distress, appears stated age Head: normocephalic, without obvious abnormality, atraumatic Eyes: conjunctivae/corneas clear. PERRL, EOM's intact Throat: lips, mucosa, and tongue normal. MMM Neck: supple, symmetrical, trachea midline, and no JVD Lungs: clear to auscultation bilaterally Heart: regular rate and rhythm, S1, S2 normal, no murmur, click, rub or gallop Abdomen: soft, non-tender, non-distended, bowel sounds normal; no masses or organomegaly Extremities: extremities normal, atraumatic, no cyanosis or edema Pulses: 2+ and symmetric Skin: skin color, texture, turgor normal; no rashes or lesions Neurologic: grossly normal, no focal deficits Dressing c/d/i Rebecca Baldwin M.D. Apr 07, 2017 14:31
== END 2017-04-06 18:05 | disposition home or self-care (01) | DRG 455 ==
LOC: SDSOVERFLO 04-04 06:07 → 3E 04-04 14:42
DX: M51.17 Intervertebral disc disorders with radiculopathy, lumbosacral region (principal); M48.06 Spinal stenosis, lumbar region; M51.16 Intervertebral disc disorders with radiculopathy, lumbar region; M48.07 Spinal stenosis, lumbosacral region
CPT/HCPCS: 36415; 72020; 76001; 86850; 86900; 86901; 86920; 87081; 94003; 94150; J2180; J2250; J2405